=== PATIENT | male | born 1940 | race Two or more races ===

== ENCOUNTER 2017-08-21 08:17 | Outpatient (CLI) | payer OTHER | END 2017-08-21 08:26 | disposition home or self-care (01) | LOC: TOM 08:17 | DX: K56.50 Intestinal adhesions [bands], unspecified as to partial versus complete obstruction (principal); Z79.01 Long term (current) use of anticoagulants; Z95.2 Presence of prosthetic heart valve; Z95.0 Presence of cardiac pacemaker; R19.5 Other fecal abnormalities ==